=== PATIENT | female | born 1985 | race Caucasian/White ===

== ENCOUNTER 2018-02-24 13:10 | Inpatient (IN) | payer BC, SELFPAY ==
[2018-02-24 09:26] VITALS: BMI 37.2
[2018-02-24] MEDS: Lactated Ringers 1,000 ML 50 ML IV (13:38)
[2018-02-24 14:08] LABS: Hematocrit 39.5 % (37-47); Hemoglobin 12.6 g/dl (12.0-15.0); Mean Corp Hgb Conc 31.9 g/gl (32-36); Mean Corpuscular Hgb 27.8 pg (27.0-32.0); Mean Platelet Vol. 11.4 fl (6.2-12.0); Platelet Count 210 K/mm3 (150-450); RBC Distribution Width CV 15.6 % (11.6-14.6); Red Blood Count 4.54 M/mm3 (4.2-5.4); White Blood Count 15.2 K/mm3 (4.4-11.0)
[2018-02-24 14:12] LABS: Scan Indicated on CBC? Y/N NO
[2018-02-24] MEDS: fentaNYL-bupivacaine (epidural) 100 ML BAG EPIDURAL (14:35)
[2018-02-24] MEDS: Oxytocin 30 units/NS 500 ml 30 UNITS/500 ML IV.SOLN 334 UNITS IV (16:43)
--- NOTE | 2018-02-24 17:02 | PCM.OB.VAG ---
Vaginal Delivery Maternal Presentation: Active Labor Amniotic Membrane Rupture Type: Artificial Amniotic Fluid Description: Clear Final ARLETTE: 02/28/18 Final ARLETTE Source: US <20 weeks Gestational age: 39 Weeks and 3 Days Date of Procedure: 02/24/18 Pre-Operative Diagnosis: labor Post-Operative Diagnosis: same Surgery/ Procedure Performed: Spontaneous Vaginal Delivery Type of Anesthesia: Epidural Description of Procedure: A vigorous female was delivered SIGRID over a second-degree perineal laceration. The remainder the infant was delivered with maternal pushing and gentle traction only in less than 15 seconds. The Pitocin infusion was initiated for active management of the third stage. The cord was clamped and cut after 1 minute. The infant was attended to by the waiting nursing staff. The placenta was delivered spontaneously and intact. The cervix and vagina were intact. The second-degree perineal laceration was repaired with 3-0 Vicryl suture in a running standard fashion. Sponge and needle counts were correct. A vaginal sweep was completed by me. Presentation: SIGRID Placental Delivery Description: Spontaneous Placenta Disposition: [facility] Cord Vessel Description: 3 Vessels Cord Entanglement: None Drain: Chaudhary to straight drain Estimated Blood Loss: 200 cc Infant A gender: Female (1 minute): 9 (5 minute): 10 Episiotomy Description: None Laceration: 2nd degree Medications given after delivery: IV Pitocin Complications: None
--- NOTE | 2018-02-24 17:16 | PCM.HP.OB ---
History Date of Admission: 02/24/18 Final ARLETTE: 02/28/18 Final ARLETTE Source: US <20 weeks Gestational age: 39 Weeks and 3 Days History of this : 33-year-old 2 para 1 female at 39-3/7 weeks gestation with EDC of 02/28/2018 presents today complaining of contractions. She was observed on labor and delivery for several hours and her contractions got more intense. She was found to have cervical change and was admitted in labor. Her has been uncomplicated to date except for advanced maternal age. Past medical history significant for thyroid nodule and asthma Family medical history noncontributory Past surgical history significant for wisdom teeth extraction and cyst aspiration of her leg Allergies codeine Allergy (Verified 12/17/13 07:42) Vomiting Penicillins Allergy (Verified 12/17/13 07:42) Hives sulfamethoxazole [From Bactrim] Allergy (Verified 12/17/13 07:42) Hives tree nut [Tree Nut] Allergy (Verified 12/17/13 07:42) Anaphylaxis trimethoprim [From Bactrim] Allergy (Verified 12/17/13 07:42) Hives Current Medications Acetaminophen (Tylenol) 325 - 650 mg PO Q4H PRN PRN PRN Reason: PAIN OR FEVER >100.4F Al Hydroxide/Mg Hydroxide (Mylanta Ii) 15 - 30 ml PO Q4H PRN PRN PRN Reason: INDIGESTION Citric Acid/Sodium Citrate (Bicitra) 30 ml PO UD PRN Lactated Ringer's () 1,000 mls @ 50 mls/hr IV .Q20H MIGUEL Last Admin: 02/24/18 13:38 Dose: 50 mls/hr Naloxone HCl 4 mg/ Dextrose 504 mls @ 0 mls/hr IV PRN PRN; Protocol PRN Reason: TO MAINTAIN RR>10 Nalbuphine HCl (Nubain) 5 - 10 mg IV Q3H PRN PRN PRN Reason: PAIN (4-10/10) Nalbuphine HCl (Nubain) 5 mg IV Q3H PRN PRN Reason: ITCHING Stop: 02/25/18 15:22 Naloxone HCl (Narcan) 0.2 mg IV Q1M PRN PRN Reason: RR<10 AND PT UNRESPONSIVE Stop: 02/25/18 15:22 Ondansetron HCl (Zofran) 4 mg IV Q8H PRN PRN PRN Reason: NAUSEA Promethazine HCl (Phenergan) 6.25 - 12.5 mg IV Q4H PRN PRN; Protocol PRN Reason: IF NAUSEA PERSISTS Sodium Chloride () 5 - 15 ml IV UD [facility] Smoking Status: Never smoker Review of Systems Constitutional: Denies: Anorexia, Chills, Fever Cardiovascular: Denies: Chest Pain Respiratory: Denies: Cough, Shortness of Breath Skin: Denies: Rash Physical Exam General: Alert, Cooperative, No apparent distress Lungs: Normal air movement Abdomen: Soft, Non Tender, Non-Distended, Gravid, Appropriate for Gestational Age Extremities:: Other - edema 1+ Estimated gestational size: Appropriate for gestational size Presentation: Cephalic Cervix Dilation (cm): 5 Station: -1 Effacement (%): 80 Assessment/Plan FHTs category 1, tocos shows ctxs q 3-5 min 33-year-old 2 para 1 female at 39-3/7 weeks gestation with spontaneous labor Artificial rupture membranes was performed with return of small amount of clear fluid. Estimated weight is less than 4500 g clinically and pelvis is clinically adequate to expect vaginal delivery. May use nitrous oxide, epidural, or Nubain as needed for pain control
--- NOTE | 2018-02-24 17:20 | HP.PCM_ITS ---
History Date of Admission: 02/24/18 Final ARLETTE: 02/28/18 Final ARLETTE Source: US <20 weeks Gestational age: 39 Weeks and 3 Days History of this : 33-year-old 2 para 1 female at 39-3/7 weeks gestation with EDC of 2017 presents today complaining of contractions. She was observed on labor and delivery for several hours and her contractions got more intense. She was found to have cervical change and was admitted in labor. Her has been uncomplicated to date except for advanced maternal age. Past medical history significant for thyroid nodule and asthma Family medical history noncontributory Past surgical history significant for wisdom teeth extraction and cyst aspiration of her leg Allergies codeine Allergy (Verified 12/17/13 07:42) Vomiting Penicillins Allergy (Verified 12/17/13 07:42) Hives sulfamethoxazole [From Bactrim] Allergy (Verified 12/17/13 07:42) Hives tree nut [Tree Nut] Allergy (Verified 12/17/13 07:42) Anaphylaxis trimethoprim [From Bactrim] Allergy (Verified 12/17/13 07:42) Hives Current Medications Acetaminophen (Tylenol) 325 - 650 mg PO Q4H PRN PRN PRN Reason: PAIN OR FEVER >100.4F Al Hydroxide/Mg Hydroxide (Mylanta Ii) 15 - 30 ml PO Q4H PRN PRN PRN Reason: INDIGESTION Citric Acid/Sodium Citrate (Bicitra) 30 ml PO UD PRN Lactated Ringer's () 1,000 mls @ 50 mls/hr IV .Q20H MIGUEL Last Admin: 02/24/18 13:38 Dose: 50 mls/hr Naloxone HCl 4 mg/ Dextrose 504 mls @ 0 mls/hr IV PRN PRN; Protocol PRN Reason: TO MAINTAIN RR>10 Nalbuphine HCl (Nubain) 5 - 10 mg IV Q3H PRN PRN PRN Reason: PAIN (4-10/10) Nalbuphine HCl (Nubain) 5 mg IV Q3H PRN PRN Reason: ITCHING Stop: 02/25/18 15:22 Naloxone HCl (Narcan) 0.2 mg IV Q1M PRN PRN Reason: RR<10 AND PT UNRESPONSIVE Stop: 02/25/18 15:22 Ondansetron HCl (Zofran) 4 mg IV Q8H PRN PRN PRN Reason: NAUSEA Promethazine HCl (Phenergan) 6.25 - 12.5 mg IV Q4H PRN PRN; Protocol PRN Reason: IF NAUSEA PERSISTS Sodium Chloride () 5 - 15 ml IV UD MIGUEL Smoking Status: Never smoker Review of Systems Constitutional: Denies: Anorexia, Chills, Fever Cardiovascular: Denies: Chest Pain Respiratory: Denies: Cough, Shortness of Breath Skin: Denies: Rash Physical Exam General: Alert, Cooperative, No apparent distress Lungs: Normal air movement Abdomen: Soft, Non Tender, Non-Distended, Gravid, Appropriate for Gestational Age Extremities:: Other - edema 1+ Estimated gestational size: Appropriate for gestational size Presentation: Cephalic Cervix Dilation (cm): 5 Station: -1 Effacement (%): 80 Assessment/Plan FHTs category 1, tocos shows ctxs q 3-5 min 33-year-old 2 para 1 female at 39-3/7 weeks gestation with spontaneous labor Artificial rupture membranes was performed with return of small amount of clear fluid. Estimated weight is less than 4500 g clinically and pelvis is clinically adequate to expect vaginal delivery. May use nitrous oxide, epidural , or Nubain as needed for pain control
[2018-02-24] MEDS: Oxytocin 30 units/NS 500 ml 30 UNITS/500 ML IV.SOLN 167 UNITS IV (17:25)
[2018-02-24] MEDS: Naproxen 250 MG Tablet PO (19:29)
[2018-02-24 20:00] VITALS: BP 121/78; PULSE 115; RESP 18; TEMP 37.2
[2018-02-24 22:55] VITALS: BP 115/73; PULSE 98; RESP 18; TEMP 36.8
--- NOTE | 2018-02-25 03:05 | DCINST_ITS ---
Discharge Diet: No Restrictions Discharge Activity: Return to Normal Activity, May not drive while taking narcotic pain medications., May Shower May resume sexual activity in: 4-6 weeks Additional Activity Instructions:: Nothing in the vagina for 4-6 weeks. You may return to work/school in 6 weeks. Call your doctor if your incision/area has: Continuous Slow Oozing, Sudden Increased Bleeding, Increased Pain/ Swelling, Increased Redness, Foul Smelling Discharge Additional Instructions: If you experience any of the following, contact your healthcare provider. * Bleeding that soaks a pad every hour for 2 hours * Fever 100.4 or higher * Unrelieved incision or abdominal pain * Swelling, redness, discharge or bleeding from your incision or episiotomy site * Your incision begins to separate * Problems urinating (including inability to urinate or burning while urinating) . * Visual changes * Severe headache * Flu-like symptoms * Pain or redness in one of both of your breasts * Pain, warmth, tenderness or swelling in your legs, especially the calf area * Frequent nausea and vomiting * Symptoms of depression or anxiety If you experience any of the following, call 911 or go to the nearest Emergency Room. * Chest pain * Problems breathing * Seizure activity * Partial or complete paralysis of a body part, slurred speech, weakness or drooping of the face, or a sudden inability to walk or hold your balance Allergies/Adverse Reactions: Allergies codeine Allergy (Verified 12/17/13 07:42) Vomiting Penicillins Allergy (Verified 12/17/13 07:42) Hives sulfamethoxazole [From Bactrim] Allergy (Verified 12/17/13 07:42) Hives tree nut [Tree Nut] Allergy (Verified 12/17/13 07:42) Anaphylaxis trimethoprim [From Bactrim] Allergy (Verified 12/17/13 07:42) Hives Medications to take at Discharge Albuterol Inhaler [Ventolin Hfa] 2 puff INHALATION Q4H PRN PRN 12/17/13 Budesonide Nasal [Rhinocort Aqua] 2 spray NASAL DAILY 12/17/13 Budesonide/Formoterol 160/4.5 [Symbicort 160/4.5 Mcg Inhaler (SP)] 2 puff INHALATION BID 12/17/13 Epinephrine [Epi Pen] 0.3 mg IM X1 12/17/13 Levocetirizine Dihydrochloride [Xyzal] 5 mg PO DAILY 12/17/13 Vits [Prenatabs FA ] 1 tablet PO DAILY 12/17/13 Famotidine [Pepcid] 20 mg PO DAILY 02/24/18 Ibuprofen [Motrin] 600 mg PO Q6H PRN #60 tab 02/25/18 The following prescriptions were given: Ibuprofen [Motrin] 600 mg PO Q6H PRN #60 tab PRN Reason: Pain Please Follow Up With: Lisa Sapp MD - [phone] When: Call to make an appointment with your providers office in 6 weeks or as needed. If you had elevated Blood Pressure or 4th degree laceration you will need to be seen in1-2 weeks. Primary Care Physician: Thomas Laughiln MD [Primary Care Provider] -
[2018-02-25 03:30] VITALS: BP 111/63; PULSE 91; RESP 16; TEMP 36.3
[2018-02-25] MEDS: Naproxen 250 MG Tablet PO ×2 (03:37→15:16)
[2018-02-25 08:00] VITALS: BP 112/72; PULSE 75; RESP 20; TEMP 36.6
--- NOTE | 2018-02-25 10:04 | PCM.PN.OB ---
Subjective: Pain well controlled, average lochia. - Physical Exam General: Alert, Cooperative, No apparent distress Vital Signs Temp Pulse Resp BP 97.8 F 75 20 H 112/72 02/25/18 08:00 02/25/18 08:00 02/25/18 08:00 02/25/18 08:00 Oxygen Delivery Method Room Air Weight: 101.4 kg Body Mass Index (BMI) 37.2 Intake and Output for Last 24 Hours 02/23/18 02/24/18 02/25/18 23:59 23:59 23:59 Intake Total 1237 / 1237 Output Total 1999 Balance -763 / -763 Laboratory Tests Past 24 Hrs 02/24/18 02/24/18 13:30 13:30 WBC 15.2 H RBC 4.54 Hgb 12.6 Hct 39.5 MCV 87.0 MCH 27.8 MCHC 31.9 L RDW 15.6 H RDW Differential 50.0 H Plt Count 210 MPV 11.4 Blood Type A POSITIVE Antibody Screen NEGATIVE Medical Necessity - Tobacco Use Smoking Status: Never smoker Assessment/Plan PPD#1 doing well working on ok to d/c home today if meets criteria
[2018-02-25 13:00] VITALS: BP 125/83; PULSE 91; RESP 18; TEMP 36.1
[2018-02-25 16:00] VITALS: BP 113/87; PULSE 110; RESP 18; TEMP 36.6; O2SAT 97
== END 2018-02-25 17:40 | disposition home or self-care (01) | DRG 775 ==
LOC: WPOUT 13:10
PROVIDERS: Admitting Provider Obstetrics & Gynecology; Family Provider Family Medicine; PCP Family Medicine; Visit Provider Obstetrics & Gynecology
DX: O70.1 Second degree perineal laceration during delivery (principal); Z3A.39 39 weeks gestation of pregnancy; Z88.5 Allergy status to narcotic agent; Z37.0 Single live birth
CPT/HCPCS: 59025; 59050; 85027; 86850; 86900; 99218; J7120; G0378